=== PATIENT | female | born 1965 | race Caucasian/White ===

== ENCOUNTER 2023-07-13 09:06 | Emergency (ER) | payer OTHER, SELFPAY ==
[2023-07-13 09:39] VITALS: BP 145/88; PULSE 73; RESP 18; TEMP 36.3; O2SAT 99
--- NOTE | 2023-07-13 10:47 | ED.EXTPRO ---
HPI - Extremity Problem General Chief complaint: Extremity Injury, Upper Stated complaint: lt wrist pain and swelling Time Seen by Provider: 07/13/23 10:39 Source: patient and RN notes reviewed Mode of arrival: ambulatory Limitations: no limitations History of Present Illness HPI Narrative: Patient presents today complaining of left wrist pain and swelling x1 week. Denies injury or trauma. Denies numbness or tingling. Currently rates her pain 8/10 and has tried no medication for symptoms prior to arrival. Pain increases with movement. History of gout in the right hand and wrist in the past. Related Data Home Medications Medication Instructions Recorded Confirmed atorvastatin 20 mg tablet mg 07/13/23 dapagliflozin propanediol 10 mg mg 07/13/23 tablet (Farxiga) insulin glargine 100 subcut 07/13/23 unit-lixisenatide 33 mcg/mL subcutaneous pen (Soliqua ) lisinopril 5 mg tablet mg 07/13/23 metformin 500 mg tablet mg 07/13/23 Allergies Allergy/AdvReac Type Severity Reaction Status Date / Time No Known Allergies Allergy Unknown Verified 03/07/17 17:55 Review of Systems Review of Systems: CONSTITUTIONAL: Denies body aches, fever, chills, or sweats. EYES: Denies visual changes, redness, or discharge. ENT: Denies rhinorrhea, congestion, sore throat, or otalgia. CARDIOVASCULAR: Denies chest pain, palpitations, or edema. RESPIRATORY: Denies cough or dyspnea. GASTROINTESTINAL: Denies abdominal pain, nausea, vomiting, or diarrhea. GENITOURINARY: Denies dysuria or hematuria. SKIN: Denies rash, itching, or wounds. MUSCULOSKELETAL: Denies back pain, or myalgia.+ left wrist pain and swelling NEUROLOGIC: Denies headache, numbness, tingling, or weakness. PSYCH: Denies depression or anxiety. [facility] Past Medical History Medical History (Updated 07/13/23 @ 10:56 by Penelope Asencio, [employer], ) Diabetes Hypertension Comments At time of signature, I have reviewed and agree with nursing past medical, surgical, social and family history unless otherwise noted. Please see nursing chart for further information. There is no relevant family history pertinent to the presenting complaint Exam Narrative: GENERAL: Well-appearing, well-nourished, and in no acute distress. HEAD: Normocephalic, atraumatic. EYES: EOMI. No redness or drainage. ENT: Mucous membranes pink and moist. NECK: Normal AROM. CHEST: No respiratory distress. EXTREMITIES: Left wrist: Mild to moderate edema, scant erythema to the wrist, extending slightly into the hand. Tenderness about the the dorsum wrist, extending to the MCPs. Distal sensation intact. Capillary refill normal. Radial pulse normal. Range of motion of the wrist limited due to severe pain and swelling. SKIN: Warm, dry, no rash. Capillary refill normal. Normal skin turgor. NEURO: No focal deficits. Alert and oriented x3. Gait steady. PSYCH: Normal affect. No signs of depression or anxiety. Course Course Level of Care: Express Care Visit Vital Signs Vital signs: Vital Signs Temperature 97.4 F L 07/13/23 09:39 Pulse Rate 73 07/13/23 09:39 Respiratory Rate 18 07/13/23 09:39 Blood Pressure 145/88 H 07/13/23 09:39 Pulse Oximetry 99 07/13/23 09:39 Oxygen Delivery Room Air 07/13/23 09:39 Temperature 97.4 F L 07/13/23 09:39 Pulse Rate 73 07/13/23 09:39 Respiratory Rate 18 07/13/23 09:39 Blood Pressure 145/88 H 07/13/23 09:39 Pulse Oximetry 99 07/13/23 09:39 Oxygen Delivery Room Air 07/13/23 09:39 Reviewed. Pt has been instructed to follow up with her PCP regarding her elevated blood pressure today. MDM - Extremity (Nontraumatic) MDM Narrative Medical decision making narrative: Patient's exam is consistent with gout. Will treat with colchicine and prednisone. Anticipatory guidance given. Differential Diagnosis Differential diagnosis: Likely gout and cellulitis Critical Care Time Critical Care Time [place]ady
== END 2023-07-13 11:04 | disposition home or self-care (01) ==
PROVIDERS: Emergency Provider Nurse Practitioner; PCP Nurse Practitioner Family
DX: M10.9 Gout, unspecified (principal); E11.9 Type 2 diabetes mellitus without complications; I10 Essential (primary) hypertension; Z79.899 Other long term (current) drug therapy; Z79.4 Long term (current) use of insulin
CPT/HCPCS: 99213; G0463